=== PATIENT | female | born 1985 | race Caucasian/White ===

== ENCOUNTER 2020-04-18 12:11 | Outpatient (CLI) | payer OTHER ==
[2020-04-19 09:25] LABS: SARS-CoV-2 MS2 Positive; SARS-CoV-2 N Gene Negative; SARS-CoV-2 S Gene Negative; SARS-CoV-2 by NAA Not Detected (NotDetected); SARS-CoV-2 orf1ab Negative
== END 2020-04-18 12:12 | disposition home or self-care (01) ==
LOC: LABBT 12:11
PROVIDERS: ATTEND Obstetrics & Gynecology
DX: Z01.812 Encounter for preprocedural laboratory examination (principal); Z20.828 Contact with and (suspected) exposure to other viral communicable diseases
CPT/HCPCS: 87635; U0003

== ENCOUNTER 2020-04-20 19:30 | Inpatient (IN) | payer OTHER ==
[2020-04-21 01:58] VITALS: BMI 25.7
[2020-04-21] MEDS ORDERED: Acetaminophen 500 MG TAB PO PRN (02:00)
[2020-04-21] MEDS ORDERED: NS / Oxytocin 40 units/1000ml 1,000 ML IV SCH ×2 (02:00→16:15)
[2020-04-21] MEDS ORDERED: Ibuprofen 800 MG TAB PO PRN (02:00)
[2020-04-21] MEDS ORDERED: Carboprost 250 MCG/ML AMP IM PRN (02:00)
[2020-04-21] MEDS ORDERED: Misoprostol 200 MCG TAB RC PRN (02:00)
[2020-04-21] MEDS ORDERED: Butorphanol Tartrate 1 MG/ML VIAL SLOW IVP PRN (02:00)
[2020-04-21] MEDS ORDERED: Zolpidem Tartrate 5 MG TAB PO PRN ×2 (02:00→16:05)
[2020-04-21] MEDS: Lactated Ringer's 1,000 ML IV SCH ×2 (02:00→19:29)
[2020-04-21] MEDS ORDERED: NS w/ Oxytocin 10 units 500 ML IV SCH ×2 (02:00)
[2020-04-21] MEDS ORDERED: Lidocaine 1% (PF) 30 ML VIAL SC PRN (02:00)
[2020-04-21 02:25] LABS: Hemoglobin 9.9 g/dL (12.0-16.0); Mean Corpuscular Hemoglobin 27.9 pg (27.0-31.0); Mean Corpuscular Volume 84.7 fL (78.0-98.0); Mean Platelet Volume 7.4 fL (7.4-10.4); Platelet Count 213 thou/uL (130-400); RBC Distribution Width 14.2 % (11.5-14.5); Red Blood Cell (RBC) Count 3.54 mill/uL (4.20-5.40); White Blood Cell (WBC) Count 12.9 thou/uL (4.8-10.8)
[2020-04-21 03:02] LABS: HBSAg Index 0.19 S/CO (0-0.99); Hep B Surf Ag Non-Reactive S/CO (NonReactive)
[2020-04-21] MEDS: Misoprostol 100 MCG TAB VAG SCH ×2 (03:24→19:30)
[2020-04-21 04:42] LABS: Syphilis Antibody Nonreactive (Nonreactive); Syphilis Antibody Index 0.05 S/CO (<1.00 Non-Reactive)
[2020-04-21] MEDS ORDERED: Bupivacaine 0.5% 20 ML, fentaNYL Citrate/PF 400 MCG in Sodium Chloride 0.9% 72 ML EPIDURAL SCH (07:45)
[2020-04-21] MEDS ORDERED: DISCONTINUE ALL PREVIOUS NARCOTICS FS SCH (07:45)
[2020-04-21] MEDS ORDERED: FLU VACC QS2020-21(6MOS UP)/PF 60 MCG/0.5 ML SYRINGE IM ONE (09:00)
[2020-04-21] MEDS ORDERED: Ondansetron PF 4 MG/2 ML Vial ONE (14:25)
[2020-04-21] MEDS ORDERED: Milk Of Magnesia 30 ML UDCUP PO PRN (16:05)
[2020-04-21] MEDS ORDERED: Lanolin Ointment 7 GM TUBE TOP PRN (16:05)
[2020-04-21] MEDS ORDERED: Misoprostol 200 MCG TAB VAG PRN (16:05)
[2020-04-21] MEDS ORDERED: Benzocaine-Menthol 82.5 ML CAN TOP PRN (16:05)
[2020-04-21] MEDS ORDERED: Adacel (T-DAP) 0.5 ML SYRINGE IM ONE (16:05)
[2020-04-21] MEDS ORDERED: Promethazine HCl 25 MG/ML VIAL IM PRN (16:05)
[2020-04-21] MEDS ORDERED: hydrALAZINE 20 MG/ML VIAL SLOW IVP PRN (16:05)
[2020-04-21] MEDS ORDERED: diphenhydrAMINE 25 MG CAP PO PRN (16:05)
[2020-04-21] MEDS ORDERED: Preparation H Ointment 28 GM TUBE PR PRN (16:05)
[2020-04-21] MEDS ORDERED: Ondansetron PF 4 MG/2 ML Vial IVP PRN (16:05)
[2020-04-21] MEDS ORDERED: HYDROcodone/Acetaminophen 5/325 mg Tablet PO PRN (16:05)
[2020-04-21] MEDS ORDERED: Bisacodyl 10 MG SUPP PR PRN (16:05)
[2020-04-21] MEDS: Ferrous Sulfate 325 MG TAB PO SCH (19:31)
[2020-04-21] MEDS: Docusate Calcium (SURFAK) 240 MG CAP PO SCH (20:14)
[2020-04-21] MEDS: Ibuprofen 800 MG TAB PO SCH (20:16)
[2020-04-22] MEDS: Ibuprofen 800 MG TAB PO SCH ×2 (05:34→13:25)
[2020-04-22] MEDS: HYDROcodone/Acetaminophen 5/325 mg Tablet PO PRN ×3 (05:34→15:53)
[2020-04-22 06:50] LABS: Mean Corpuscular HGB CONC 33.3 g/dL (32.0-36.0); Mean Corpuscular Volume 87.3 fL (78.0-98.0); Mean Platelet Volume 7.3 fL (7.4-10.4); Platelet Count 186 thou/uL (130-400); RBC Distribution Width 14.2 % (11.5-14.5); Red Blood Cell (RBC) Count 3.09 mill/uL (4.20-5.40); White Blood Cell (WBC) Count 11.1 thou/uL (4.8-10.8)
[2020-04-22] MEDS: Ferrous Sulfate 325 MG TAB PO SCH ×2 (08:20→17:16)
[2020-04-22] MEDS: Docusate Calcium (SURFAK) 240 MG CAP PO SCH (08:20)
[2020-04-22] MEDS ORDERED: Prenatal Vitamin 1 TAB PO SCH (09:00)
[2020-04-22 11:53] VITALS: BP 109/71; TEMP 98
== END 2020-04-22 17:28 | disposition home or self-care (01) | DRG 807 ==
LOC: L&D 04-21 01:03 → 3SW 04-21 18:39
PROVIDERS: ADMIT Obstetrics & Gynecology; ATTEND Obstetrics & Gynecology
PROC: 10D07Z6 Extraction of Products of Conception, Vacuum, Via Natural or Artificial Opening (ICD-10-PCS; principal; 2020-04-21)
PROC: 10907ZC Drainage of Amniotic Fluid, Therapeutic from Products of Conception, Via Natural or Artificial Opening (ICD-10-PCS; 2020-04-21)
PROC: 3E033VJ Introduction of Other Hormone into Peripheral Vein, Percutaneous Approach (ICD-10-PCS; 2020-04-21)
DX: O69.81X0 Labor and delivery complicated by cord around neck, without compression, not applicable or unspecified (principal); Z37.0 Single live birth; Z3A.39 39 weeks gestation of pregnancy; O99.02 Anemia complicating childbirth; D64.9 Anemia, unspecified; Z20.828 Contact with and (suspected) exposure to other viral communicable diseases
CPT/HCPCS: 36415; 85027; 86780; 86850; 86870; 86900; 86901; 87340; J2405; J2590; J3010; J3490